=== PATIENT | male | born 2000 | race Caucasian/White ===

== ENCOUNTER 2021-08-25 13:13 | Emergency (ER) | payer OTHER ==
[2021-08-25 13:36] LABS: HEMOGLOBIN 16.9 gm/dl (14.0-17.5); RED BLOOD COUNT 5.49 M/UL (4.20-5.50); WHITE BLOOD COUNT 9.9 K/UL (4.5-11.0)
[2021-08-25 14:31] LABS: BUN/CREATININE RATIO 14 (0-10)
== END 2021-08-25 18:03 | disposition home or self-care (01) ==
LOC: ER1 13:13
DX: R07.9 Chest pain, unspecified (principal); I10 Essential (primary) hypertension; F17.220 Nicotine dependence, chewing tobacco, uncomplicated; Z88.8 Allergy status to other drugs, medicaments and biological substances; Z95.5 Presence of coronary angioplasty implant and graft
CPT/HCPCS: 71045; 80053; 82550; 82553; 84484; 85025; 93005; 93242; 99284

== ENCOUNTER 2021-11-16 01:04 | Emergency (ER) | payer OTHER ==
[2021-11-16 01:30] LABS: HEMOGLOBIN 15.8 gm/dl (14.0-17.5); RED BLOOD COUNT 5.15 M/UL (4.20-5.50); WHITE BLOOD COUNT 10.2 K/UL (4.5-11.0)
[2021-11-16 01:55] LABS: BUN/CREATININE RATIO 19 (0-10)
== END 2021-11-16 03:10 | disposition home or self-care (01) ==
LOC: ER1 01:04
PROVIDERS: Emergency Medicine
DX: R55 Syncope and collapse (principal); E86.0 Dehydration; T67.5XXA Heat exhaustion, unspecified, initial encounter; I45.10 Unspecified right bundle-branch block
CPT/HCPCS: 71045; 80053; 82550; 82553; 84484; 85025; 93005; 99284